=== PATIENT | female | born 1950 | race Caucasian/White ===

== ENCOUNTER 2024-08-01 08:56 | Day surgery (SDC) | payer MEDICARE ==
[2024-08-01] MEDS ORDERED: Depo-Medrol 40 MG/ML IM ONE (08:57)
[2024-08-01] MEDS ORDERED: Xylocaine-Mpf 2% 5 Ml Vial IJ ONE (08:57)
[2024-08-01] MEDS ORDERED: DIPRIVAN 200 MG/20 ML IV ONE (10:55)
[2024-08-01] MEDS ORDERED: Lactated Ringers 1,000 ML IV ONE (13:46)
--- NOTE | 2024-08-01 19:52 | XRAY ---
Indication: Bilateral L4-S1 MBB Intraoperative fluoroscopy provided for 14 seconds. Single digital spot image submitted for interpretation demonstrates posterior needle tips projecting over the expected left and right L4-S1 nerve roots. Correlate with intraoperative findings/report. Incidental L3-L5 spinous process hardware.
--- NOTE | 2024-08-01 20:20 | XRAY ---
14 seconds of fluoroscopy was used in surgery for a bilateral L4-S1 MBB.
== END 2024-08-01 11:30 ==
LOC: SDC-PAIN 08:56
PROVIDERS: ATTEND Psychiatry & Neurology Pain Medicine
DX: M47.816 Spondylosis without myelopathy or radiculopathy, lumbar region (principal)
CPT/HCPCS: 64493; 64494; 72020; 77002; J2704